=== PATIENT | female | born 2000 | race Caucasian/White ===

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

== ENCOUNTER 2022-06-01 15:30 | Emergency (ER) | payer BC, SELFPAY ==
[2022-06-01 15:43] VITALS: BP 144/69; PULSE 91; RESP 20; TEMP 37.3; O2SAT 100
--- NOTE | 2022-06-01 16:06 | ED.FEMALEGU ---
HPI - Female Genitourinary General Chief complaint: Urogenital-Female Stated complaint: poss uti / left ft toe infection Time Seen by Provider: 06/01/22 16:06 Source: patient and RN notes reviewed Mode of arrival: ambulatory Limitations: no limitations History of Present Illness HPI Narrative: 22-year-old female presented for complaint of burning with urination, frequency, urgency since yesterday, and noted blood in the urine this morning. Denies abdominal pain, flank pain, nausea vomiting, fevers or chills. She took azo and cranberry pills for symptoms. LMP 5 days ago. Patient also presents with c/o left great toe redness, swelling and drainage for about 2 weeks. Has applied neosporin. States it has drained yellow drainage. Related Data Home Medications Medication Instructions Recorded Confirmed norgestimate 0.25 mg-ethinyl 1 tablet PO DAILY 12/04/19 06/01/22 estradiol 35 mcg tablet (Sprintec (28)) fluconazole 150 mg tablet 150 mg PO DAILY 06/01/22 06/01/22 Allergies Allergy/AdvReac Type Severity Reaction Status Date / Time No Known Allergies Allergy Verified 06/01/22 15:50 Review of Systems Review of Systems: CONSTITUTIONAL: Denies body aches, fever, chills, or sweats. CARDIOVASCULAR: Denies chest pain, palpitations, or edema. RESPIRATORY: Denies cough or dyspnea. GASTROINTESTINAL: Denies abdominal pain, nausea, vomiting, or diarrhea. GENITOURINARY: Reports dysuria, frequency, urgency, hematuria, denies flank pain SKIN: reports redness and drainage to left great toe MUSCULOSKELETAL: Denies back pain or myalgia. [facility] Social History Social History Alcohol intake: never Substance use: never Living arrangements: with family Gender identity (if verbalized by the patient): Female Comments At time of signature, I have reviewed and agree with nursing past medical, surgical, social and family history unless otherwise noted. Please see nursing chart for further information. There is no relevant family history pertinent to the presenting complaint Exam Narrative: GENERAL: Well-appearing and in no acute distress. ENT: Mucous membranes pink and moist. NECK: Normal AROM. Supple. CHEST: No respiratory distress. Clear to auscultation. HEART: Regular rate and rhythm. ABDOMEN: Soft, nontender, nondistended, normal active bowel sounds. No CVA tenderness MUSCULOSKELETAL: No bony tenderness. SKIN: Left great toe with erythema and mild swelling to proximal aspect of the nail plate and small amount purulent drainage, nontender. NEURO: No focal deficits. Alert and oriented x3. Gait steady. PSYCH: Normal affect. Course Course Emergency Course: Patient is aware of diagnosis, understands and agrees to treatment plan. Anticipatory guidance given. Patient agrees to follow-up as directed and is aware of reasons to seek care at the emergency department. Portions of this record may have been created with voice recognition software Level of Care: Express Care Visit Vital Signs Vital signs: Vital Signs Temperature 99.1 F 06/01/22 15:43 Pulse Rate 91 06/01/22 15:43 Respiratory Rate 20 06/01/22 15:43 Blood Pressure 144/69 H 06/01/22 15:43 Pulse Oximetry 100 06/01/22 15:43 Oxygen Delivery Room Air 06/01/22 15:43 Temperature 99.1 F 06/01/22 15:43 Pulse Rate 91 06/01/22 15:43 Respiratory Rate 20 06/01/22 15:43 Blood Pressure 144/69 H 06/01/22 15:43 Pulse Oximetry 100 06/01/22 15:43 Oxygen Delivery Room Air 06/01/22 15:43 Reviewed MDM - Female Genitourinary MDM Narrative Medical decision making narrative: Discussed physical exam findings. Advised supportive measures and signs/symptoms to go to the ER. Pt is appropriate for outpt treatment and f/u. Differential Diagnosis Differential diagnosis: Likely urinary tract infection, bacterial vaginosis and cystitis Lab Data Labs:
== END 2022-06-01 16:17 | disposition home or self-care (01) ==
PROVIDERS: Emergency Provider Nurse Practitioner Family
DX: L03.032 Cellulitis of left toe (principal); N39.0 Urinary tract infection, site not specified
CPT/HCPCS: 81003; 87077; 87086; 87186; 99213; G0463